=== PATIENT | female | born 1980 | race American Indian/Alaskan Native ===

== ENCOUNTER 2020-06-30 15:14 | Inpatient (IN) | payer OTHER ==
[2020-06-30] MEDS ORDERED: ONDANSETRON 4 MG/2 ML INJ IV PRN (16:59)
[2020-06-30] MEDS ORDERED: NALOXONE 0.4 MG/1 ML INJ IV PRN (16:59)
[2020-06-30] MEDS ORDERED: BUTORPHANOL 2 MG/1 ML INJ IV PRN (16:59)
[2020-06-30] MEDS ORDERED: PROMETHAZINE 25 MG TAB PO PRN (16:59)
[2020-06-30] MEDS ORDERED: TERBUTALINE 1 MG/1 ML INJ SUB-Q PRN (16:59)
[2020-06-30] MEDS ORDERED: LIDOCAINE (2%) 20 MG/1 ML VIAL 20 ML MDV INFILTRATI ONE (16:59)
[2020-06-30] MEDS ORDERED: MINERAL OIL 30 ML ORAL LIQD PO PRN (16:59)
[2020-06-30] MEDS ORDERED: AMPICILLIN/NS 2 GM/100 ML 2 GM/100 ML BAG IV ONE (16:59)
[2020-06-30] MEDS ORDERED: miSOPROStol 200 MCG TAB PR PRN (16:59)
[2020-06-30] MEDS ORDERED: ePHEDrine SULFATE 50 MG/1 ML INJ IV PRN (16:59)
[2020-06-30] MEDS ORDERED: DINOPROSTONE 10 MG VAG SUPP VG NR (17:00)
[2020-06-30] MEDS ORDERED: OXYTOCIN DRIP 30 UNITS/500 ML BAG IV SCH (17:00)
--- NOTE | 2020-06-30 17:21 | History and Physical Report ---
History of Present Illness Date of examination: 06/30/20 Date of admission: 06/30/20 15:14 Chief complaint: Here for induction History of present illness: Pt is a 39 yo at 38w5d EGA who presents for schedule induction of labor secondary to chronic hypertension. She reports positive movement and denies MORALEZ, scotomata, swelling, LOF, vaginal bleeding, or contractions. [facility], co-managed with [facility]. Her p renatal course has been complicated by chronic hypertension (takes Labetalol 200mg BID), advanced maternal age, and history of hypoerthyroidism with thyroidectomy, normal TFT throughout . She is GBS positive. Past History Past Medical History: hypertension (on Labetalol 200mg BID), thyroid disease (thyroidectomy) Past Surgical History: thyroid Family/Genetic History: none Social history: no significant social history - Obstetrical History Expected Date of Delivery: 07/09/20 Actual Gestation: 38 Week(s) 5 Day(s) : 3 Para: 1 Hx # Term Pregnancies: 1 Induced : 1 Number of Living Children: 1 Medications and Allergies Allergies Allergy/AdvReac Type Severity Reaction Status Date / Time No Known Allergies Allergy Unverified 06/30/20 15:48 Home Medications Medication Instructions Recorded Confirmed Last Taken Type labetaloL [Labetalol 200mg TAB] 200 mg PO BID 06/30/20 06/30/20 06/29/20 22:00 History Active Meds: Active Medications Butorphanol Tartrate (Butorphanol 2 Mg/1 Ml Inj) 1 mg IV Q2H PRN PRN Reason: Pain, Moderate(4-6) LABOR PAIN Butorphanol Tartrate (Butorphanol 2 Mg/1 Ml Inj) 2 mg IV Q2H PRN PRN Reason: Pain , Severe (7-10) Dinoprostone (Dinoprostone 10 Mg Vag Supp) 10 mg VG ONCE NR Stop: 06/30/20 20:00 Ephedrine Sulfate (Ephedrine Sulfate 50 Mg/1 Ml Inj) 10 mg IV Q2M PRN PRN Reason: Hypotension Fentanyl (Fentanyl 100 Mcg/2 Ml Inj) 100 mcg IV Q2H PRN PRN Reason: Pain,Severe (7-10) LABOR PAIN Lactated Ringer's (Lactated Ringers) 1,000 mls @ 125 mls/hr IV DIRECT CAROL Oxytocin/Sodium Chloride (Pitocin/Ns 30 Unit/500ml) 30 units in 500 mls @ 40 mls/hr IV TITR CAROL; Protocol Ampicillin Sodium (Ampicillin/Ns 2 Gm/100 Ml) 2 gm in 100 mls @ 100 mls/hr IV ONCE ONE; Protocol Stop: 06/30/20 17:58 Ampicillin Sodium (Ampicillin/Ns 1 Gm/50 Ml) 1 gm in 50 mls @ 100 mls/hr IV Q4H CAROL; Protocol Mineral Oil (Mineral Oil 30 Ml Oral Liqd) 30 ml PO QHS PRN PRN Reason: Constipation Misoprostol (Misoprostol 200 Mcg Tab) 800 mcg DE ONCE PRN PRN Reason: Uterine Bleeding Naloxone HCl (Naloxone 0.4 Mg/1 Ml Inj) 0.1 mg IV Q2MIN PRN PRN Reason: Res Rate </= 8 or 02 SAT < 92% Ondansetron HCl (Ondansetron 4 Mg/2 Ml Inj) 4 mg IV Q8H PRN PRN Reason: Nausea And Vomiting Promethazine HCl (Promethazine 25 Mg Tab) 25 mg PO Q6H PRN PRN Reason: Nausea And Vomiting Terbutaline Sulfate (Terbutaline 1 Mg/1 Ml Inj) 0.25 mg SUB-Q ONCE PRN PRN Reason: Hyperstimulation/Hypertonicity Review of Systems All systems: negative Eyes: no blurred vision Cardiovascular: no edema Genitourinary: no vaginal bleeding, no vaginal discharge, no leakage of fluid, no contractions Neurological: no headaches - Vital Signs Vital signs: Vital Signs Pulse BP 83 152/97 06/30/20 15:39 06/30/20 15:39 Temp Pulse Resp BP Pulse Ox 98.6 F 83 18 142/83 100 06/30/20 15:50 06/30/20 17:14 06/30/20 15:50 06/30/20 17:10 06/30/20 17:14 - Physical Exam Abdomen: Positive: soft. Negative: distention, tenderness Uterus: Positive: enlarged (gravid, cephalic) - Obstetrical FHR: category 1 Cervical Dilatation: 0 (per RN) Results Result Diagrams: 06/30/20 16:44 06/30/20 16:44 All other labs normal. Assessment and Plan A: 39 yo at 38w5d EGA Chronic hypertension Advanced maternal age History of hyperthyroidism with normal thyroid function this GBS positive, membranes intact. P: Admit for induction of labor- Cervidil Continue Labetalol 200mg BID Ampicillin prophylaxis in active labor or with ROM Anticipate
[2020-06-30 17:36] LABS: Hematocrit 32.6 % (30.3-42.9); Hemoglobin 11.3 gm/dl (10.1-14.3); Mean Corpuscular HGB Conc 35 % (30-34); Mean Corpuscular Volume 90 fl (79-97); Platelet Count 154 K/mm3 (140-440); Red Blood Count 3.64 M/mm3 (3.65-5.03)
[2020-06-30 18:07] LABS: Alanine Aminotransferase 8 units/L (7-56); Albumin 3.6 g/dL (3.9-5); Blood Urea Nitrogen 6 mg/dL (7-17); Calcium 9.2 mg/dL (8.4-10.2); Hemolysis Index 5
[2020-06-30 18:12] LABS: BUN/Creatinine Ratio 12
[2020-06-30] MEDS: LACTATED RINGERS 1,000 ML IV SCH (18:14)
[2020-06-30 19:48] LABS: Uric Acid 4.9 mg/dL (3.5-7.6)
[2020-06-30] MEDS ORDERED: AMPICILLIN/NS 1 GM/50 ML 1 GM/50 ML BAG IV SCH (21:01)
[2020-07-01] MEDS: BUTORPHANOL 2 MG/1 ML INJ IV PRN ×2 (01:19→23:06)
[2020-07-01] MEDS: LACTATED RINGERS 1,000 ML IV SCH ×3 (10:07→23:06)
[2020-07-01] MEDS: fentaNYL 100 MCG/2 ML INJ IV PRN ×2 (15:04→17:56)
--- NOTE | 2020-07-01 17:38 | Event Note ---
Date: 07/01/20 Patient is in a hospital day #2 undergoing induction of labor for chronic hypertension. Her Cervidil had been removed earlier and the patient was transitioned to Pitocin. Current cervical exam of 1 to 2 cm. The patient remains intact. Cook catheter was placed without difficulty. will continue induction as scheduled.
[2020-07-02] MEDS ORDERED: AMPICILLIN/NS 2 GM/100 ML 2 GM/100 ML BAG IV ONE (02:30)
[2020-07-02] MEDS ORDERED: NALOXONE 2 MG/2 ML INJ IV PRN (02:48)
[2020-07-02] MEDS ORDERED: ePHEDrine SULFATE 50 MG/1 ML INJ IV PRN (02:48)
--- NOTE | 2020-07-02 02:50 | Anesthesia Consultation ---
Anesthesia Consult and Med Hx Date of service: 07/02/20 - Airway Anesthetic Teeth Evaluation: Good ROM Head & Neck: Adequate Mental/Hyoid Distance: Adequate Mallampati Class: Class II Intubation Access Assessment: Probably Good - Pulmonary Exam CTA: Yes - Cardiac Exam Cardiac Exam: RRR - Pre-Operative Health Status ASA Pre-Surgery Classification: ASA3 Proposed Anesthetic Plan: Epidural - Pulmonary Hx Asthma: No - Cardiovascular System Hx Hypertension: Yes - Central Nervous System Hx Seizures: No Hx Psychiatric Problems: No - Endocrine Hx Renal Disease: No Hx Hypothyroidism: Yes Hx Hyperthyroidism: No - Hematic Hx Anemia: No Hx Sickle Cell Disease: No - Other Systems Hx Obesity: Yes
[2020-07-02] MEDS ORDERED: fentaNYL-BUPIV 2 MCG/ML-0.125% 200 MCG/100 ML BAG EPIDURAL SCH (03:00)
--- NOTE | 2020-07-02 03:09 | Progress Note ---
Labor Epidural - Labor Epidural Start Time: 02:56 Stop Time: 03:01 Performed by:: ELISABETH FERRIS Procedure: Patient is requesting epidural for labor pain. H&P, and labs reviewed. Procedure explained, questions answered, consent obtained. Patient in sitting position with blood pressure cuff and pulse ox on and working. Timeout performed immediately before start of procedure. Sterile chlorahexadine 0.5% prep/drape. 3 mL 1% lidocaine skin wheal at L[3]-L[4]. 18-gauge Tuohy epidural needle advanced to [id number] with saline at [7] cm. Epidural dexmedetomidine [30] mcg administered. Epidural catheter advanced to [12] cm, negative aspiration for blood and csf, negative test dose 3 ml 1.5% lidocaine with epinephrine. Sterile steri-strips and tegaderm applied, followed by tape reinforcement. Patient tolerated procedure well.
[2020-07-02] MEDS: hydrALAZINE 20 MG/1 ML INJ IV PRN ×3 (09:26→15:04)
[2020-07-02] MEDS ORDERED: PROMETHAZINE 25 MG RECT SUPP PR PRN (13:53)
[2020-07-02] MEDS ORDERED: WITCH HAZEL/ GLYCERIN PAD TP PRN (13:53)
[2020-07-02] MEDS ORDERED: PROMETHAZINE 25 MG TAB PO PRN (13:53)
[2020-07-02] MEDS ORDERED: LANOLIN/ZINC/DIMETHICONE (LANSINOH) 7 GM TP PRN (13:53)
[2020-07-02] MEDS ORDERED: ONDANSETRON 4 MG/2 ML INJ IV PRN (13:53)
[2020-07-02] MEDS ORDERED: HYDROcodone/ACETAMINOPHEN 5-325 MG TAB PO PRN (13:53)
[2020-07-02] MEDS ORDERED: MAGNESIUM HYDROXIDE (MOM) ORAL LIQD UDC PO PRN (13:53)
[2020-07-02] MEDS ORDERED: diphenhydrAMINE 25 MG CAP PO PRN (13:53)
[2020-07-02] MEDS ORDERED: ACETAMINOPHEN 325 MG TAB PO PRN (13:53)
--- NOTE | 2020-07-02 13:53 | Procedure Note ---
OB Delivery Note - Delivery Date of Delivery: 07/02/20 Surgeon: RA AMADO Estimated blood loss: 100cc - Vaginal Delivery presentation: vertex Delivery position: OA Delivery induction: oxytocin Delivery monitor: external FHT, external uterine Route of delivery: Delivery placenta: spontaneous Delivery cord: nuchal cord, 3 umbilical vessels Episiotomy: none Delivery laceration: none Anesthesia: epidural Delivery comments: Patient progressed to complete +2 and post to deliver a live-born male infant Apgars of 7 and 9. The infant's weight is 6lbs 15oz. After delivery of the head a nuchal cord x1 was manually reduced. The shoulders delivered without difficulty. The infant was bulb suctioned and stimulated. The cord was clamped and cut and the was placed on the warmer. The placenta delivered spontaneously intact with a three-vessel cord. No lacerations were noted. Estimated blood loss 100 mL. - Infant A at 1 minute: 7 at 5 minutes: 9 Gender: Male (Weight 6lbs 15oz)
[2020-07-02] MEDS: IBUPROFEN 600 MG TAB PO SCH (20:05)
[2020-07-03 01:53] LABS: Hematocrit 34.1 % (30.3-42.9); Hemoglobin 11.5 gm/dl (10.1-14.3)
[2020-07-03] MEDS: IBUPROFEN 600 MG TAB PO SCH ×2 (02:00→12:43)
--- NOTE | 2020-07-03 13:00 | Progress Note ---
Assessment and Plan - Patient Problems (1) Chronic hypertension affecting Current Visit: Yes Status: Acute Plan to address problem: Patient doing well discharge home Subjective - Subjective Date of service: 07/03/20 Interval history: Patient without complaints. Pain controlled. Patient reports: appetite normal, voiding normally, pain well controlled : doing well Objective - Vital Signs Latest vital signs: Vital Signs Temp Pulse Resp BP BP Pulse Ox 07/03/20 12:37 98.6 F 78 18 145/69 98 07/03/20 10:38 93 H 144/92 07/03/20 08:25 98.4 F 87 18 156/89 99 07/03/20 05:02 98.2 F 80 20 133/76 99 07/03/20 00:09 98.2 F 80 20 121/74 96 07/02/20 22:20 89 111/62 07/02/20 21:00 98.2 F 93 H 18 106/69 97 07/02/20 18:30 98.4 F 07/02/20 17:20 100.2 F H 92 H 18 119/64 100 07/02/20 17:12 99 H 118/69 07/02/20 17:10 99 H 109/64 07/02/20 16:55 101 H 133/77 07/02/20 16:40 112 H 143/84 07/02/20 16:25 97 H 137/78 07/02/20 16:00 101 H 100 07/02/20 15:55 93 H 161/93 100 07/02/20 15:50 93 H 100 07/02/20 15:45 100 H 100 07/02/20 15:40 98 H 156/92 100 07/02/20 15:35 99 H 100 07/02/20 15:30 100 H 100 07/02/20 15:29 94 H 164/93 07/02/20 15:25 99 H 163/87 100 07/02/20 15:20 96 H 100 07/02/20 15:15 94 H 100 07/02/20 15:10 89 165/91 100 07/02/20 15:05 86 100 07/02/20 15:03 83 165/91 07/02/20 15:00 88 100 07/02/20 14:59 96 H 179/96 07/02/20 14:55 87 179/91 100 07/02/20 14:50 91 H 100 07/02/20 14:45 91 H 100 07/02/20 14:40 87 100 07/02/20 14:35 83 100 07/02/20 14:30 92 H 100 07/02/20 14:29 87 198/93 07/02/20 14:26 96 H 162/84 07/02/20 14:25 82 100 07/02/20 14:20 86 100 07/02/20 14:15 71 99 07/02/20 14:10 80 170/91 100 07/02/20 14:05 79 100 07/02/20 14:00 87 100 07/02/20 13:55 77 172/85 100 07/02/20 13:54 74 163/78 07/02/20 13:51 75 163/78 07/02/20 13:50 95 H 98 07/02/20 13:46 75 163/95 07/02/20 13:45 77 100 07/02/20 13:40 76 148/78 100 07/02/20 13:35 90 100 07/02/20 13:30 79 100 07/02/20 13:25 83 100 07/02/20 13:20 84 100 07/02/20 13:15 89 99 07/02/20 13:14 80 159/98 07/02/20 13:12 65 94 07/02/20 13:10 76 100 07/02/20 13:05 70 100 07/02/20 13:00 73 99 Intake and Output 07/02/20 07/03/20 07/03/20 22:59 06:59 14:59 Intake Total 240 Output Total 500 200 Balance -500 -200 240 Intake: Oral 240 Output: Urine 500 200 Void 500 200 Other: Total, Intake Amount 240 Total, Output Amount 300 200 # Voids Void 1 1 - Exam Uterus: Present: normal, firm
--- NOTE | 2020-07-03 13:01 | Discharge Summary ---
Providers - Providers Date of Admission: 06/30/20 15:14 Date of discharge: 07/03/20 Attending physician: SRIDEVI NICOLE Primary care physician: SRIDEVI NICOLE Hospitalization Reason for admission: induction of labor Delivery: Discharge diagnosis: IUP at term delivered Hospital course: Patient admitted for IOL for chronic hypertension. Patient had a . uncomplicated Condition at discharge: Good Disposition: DC-01 TO HOME OR SELFCARE - Discharge Diagnoses (1) Chronic hypertension affecting Status: Acute Plan - Discharge Medications Prescriptions: labetaloL [Labetalol 200mg TAB] 200 mg PO BID #60 tablet Ibuprofen [Motrin] 800 mg PO Q8HR PRN #30 tablet PRN Reason: Pain , Severe (7-10) - Provider Discharge Summary Activity: no sex for 6 weeks, no heavy lifting 4 weeks, no strenuous exercise Diet: routine Instructions: routine Additional instructions: [] Smoking cessation referral if applicable(refer to patient education folder for contact #) [] Refer to [facility]'s [facility] Booklet Call your doctor immediately for: * Fever > 100.5 * Heavy vaginal bleeding ( >1 pad per hour) * Severe persistent headache * Shortness of breath * Reddened, hot, painful area to leg or breast * schedule visit in 4 weeks - Follow up plan
--- NOTE | 2020-07-03 15:23 | Post Anesthesia Evaluation ---
- Post Anesthesia Evaluation Patient Participated: Yes Airway Patent: Yes Stable Respiratory Function: Yes Nausea/Vomiting: No Temp > 96.8F: Yes Pain Manageable: Yes Adequeate Hydration: Yes Anesthesia Complications: No Block Receding Appropriately: Yes
[2020-07-03 22:50] VITALS: BP 150/100
== END 2020-07-03 22:00 | disposition home or self-care (01) | DRG 807 ==
LOC: LD 15:14 → OB 07-02 17:31
PROVIDERS: ADMIT Obstetrics & Gynecology; ATTEND Obstetrics & Gynecology
PROC: 0U7C7ZZ Dilation of Cervix, Via Natural or Artificial Opening (ICD-10-PCS; principal; 2020-07-01)
PROC: 10E0XZZ Delivery of Products of Conception, External Approach (ICD-10-PCS; 2020-07-01)
PROC: 3E0R3BZ Introduction of Anesthetic Agent into Spinal Canal, Percutaneous Approach (ICD-10-PCS; 2020-07-01)
PROC: 00HU33Z Insertion of Infusion Device into Spinal Canal, Percutaneous Approach (ICD-10-PCS; 2020-07-01)
PROC: 3E033VJ Introduction of Other Hormone into Peripheral Vein, Percutaneous Approach (ICD-10-PCS; 2020-07-02)
DX: O10.92 Unspecified pre-existing hypertension complicating childbirth (principal); Z37.0 Single live birth; O99.284 Endocrine, nutritional and metabolic diseases complicating childbirth; O99.824 Streptococcus B carrier state complicating childbirth; O99.214 Obesity complicating childbirth; E07.89 Other specified disorders of thyroid; Z3A.38 38 weeks gestation of pregnancy; Z20.822 Contact with and (suspected) exposure to COVID-19
CPT/HCPCS: 36415; 59200; 80053; 84550; 85014; 85018; 85027; 86592; 86850; 86900; 86901; G0378; A6250; J0290; J0360; J0595; J2405; J2590; J3010; J7120; U0003